=== PATIENT | female | born 1945 | race Caucasian/White ===

== ENCOUNTER 2017-03-19 05:41 | Day surgery (SDC) | payer MEDICARE ==
[2017-03-17 16:35] LABS: ASPARTATE AMINO TRANSFERASE 12 U/L (15-37); BLOOD UREA NITROGEN 18 mg/dL (7-18)
[~2017-03-19] VITALS: Ht 149.9 cm; Wt 58.1 kg
[~2017-03-19 05:41] MED LIST: AMLO5TAB2 PO; BISA5TAB5 PO; CITA10TA4 PO; CYAN1TAB29 PO; DOCU-91 PO; DULO60CA55 PO; FLUT16SP NS; FLUT50DI PO; FOLIC ACID PO; LINE600T37 PO; LORA10TA3 PO; OMEP-110 PO; ONDA4TAB7 PO; OXYC10TA6 PO; PROC5TAB PO; ROPI2TAB4 PO; SIMV20TA3 PO; TEMA15CA PO; TIOT18CA INH; VITA150T PO; VITAMIN C PO; VITAMIN E PO; [UNRECOGNIZED DRUG - OTHER] PO
[2017-03-19 06:06] VITALS: BP 158/97
[2017-03-19] MEDS ORDERED: HYDR-3144 PO (06:44)
[2017-03-19] MEDS ORDERED: SENN1TAB7 PO (06:44)
[2017-03-19] MEDS ORDERED: FENTANYL PF 250 MCG/5ML ONE (07:04)
[2017-03-19] MEDS ORDERED: MIDAZOLAM 1 MG/ML, 2ML ONE (07:04)
[2017-03-19] MEDS ORDERED: CEFTRIAXONE 1,000 MG ONE ×2 (07:37→07:49)
[2017-03-19] MEDS ORDERED: SUCCINYLCHOLINE 20 MG/ML, 10ML ONE (07:37)
[2017-03-19] MEDS ORDERED: PROPOFOL 10 MG/ML, 20ML ONE (07:37)
[2017-03-19] MEDS ORDERED: hydrALAzine 20 MG/ML, 1ML IV PRN (08:00)
[2017-03-19] MEDS ORDERED: ACETAMINOPHEN 325 MG TABLET PO PRN (08:00)
[2017-03-19] MEDS ORDERED: METOCLOPRAMIDE 5 MG/ML, 2ML IV PRN (08:00)
[2017-03-19] MEDS ORDERED: ONDANSETRON 2MG/ML, 2ML IVPush PRN (08:00)
[2017-03-19] MEDS ORDERED: ALBUTEROL/IPRATROPIUM 2.5MG/0.5MG, 3 ML NPPB PRN (08:00)
[2017-03-19] MEDS ORDERED: LABETALOL 5MG/ML, 20ML IV PRN (08:00)
[2017-03-19] MEDS ORDERED: FENTANYL PF 100 MCG/2ML IV PRN (08:00)
[2017-03-19] MEDS ORDERED: morphine SULFATE 10 MG/ML, 1ML IV PRN (08:00)
[2017-03-19] MEDS ORDERED: HYDROcodone/APAP 5/325 TABLET PO PRN (08:30)
[2017-03-19] MEDS ORDERED: ONDANSETRON 2MG/ML, 2ML IV PRN (08:30)
[2017-03-19] MEDS ORDERED: OXYcodone 5 MG/5 ML ORAL.SOL UDC ONE (08:48)
[2017-03-19] MEDS ORDERED: OXYcodone 5 MG/5 ML ORAL.SOL UDC PO PRN (09:00)
== END 2017-03-19 11:05 | disposition home or self-care (01) ==
LOC: OUT 05:41 → 4NOR 05:44 → OUT 11:05
PROVIDERS: ATTEND Urology
DX: N20.1 Calculus of ureter (principal); I12.0 Hypertensive chronic kidney disease with stage 5 chronic kidney disease or end stage renal disease; N18.6 End stage renal disease; J44.9 Chronic obstructive pulmonary disease, unspecified; Z86.718 Personal history of other venous thrombosis and embolism; K21.9 Gastro-esophageal reflux disease without esophagitis; Z87.440 Personal history of urinary (tract) infections; F41.9 Anxiety disorder, unspecified; F32.9 Major depressive disorder, single episode, unspecified; Z88.0 Allergy status to penicillin; Z88.2 Allergy status to sulfonamides; G43.909 Migraine, unspecified, not intractable, without status migrainosus; Z85.820 Personal history of malignant melanoma of skin; Z96.649 Presence of unspecified artificial hip joint; Z82.61 Family history of arthritis; Z81.8 Family history of other mental and behavioral disorders; Z82.49 Family history of ischemic heart disease and other diseases of the circulatory system; Z80.6 Family history of leukemia; Z83.49 Family history of other endocrine, nutritional and metabolic diseases; Z87.891 Personal history of nicotine dependence
CPT/HCPCS: 36415; 52353; 74000; 76000; 80053; 81001; 82360; 85025; 85610; 85730; 87086; 87106; 88300; 93005; C1769; J0330; J0696; J2704; J3010; J2250